=== PATIENT | female | born 1970 | race African-American/Black ===

== ENCOUNTER 2022-07-10 15:32 | Emergency (ER) | payer SELFPAY ==
[~2022-07-10] VITALS: Ht 175.3 cm; Wt 113.6 kg
[2022-07-10] MEDS ORDERED: methylPREDNISolone SOD SUCC 125 MG/2 ML VL IV ONE (16:15)
[2022-07-10] MEDS ORDERED: cefTRIAXone 1GM/50ML D5W 50 ML IV ONE ×2 (16:15)
[2022-07-10] MEDS ORDERED: cefTRIAXone SOD 1,000 MG VL IM ONE (16:30)
[2022-07-10 16:35] VITALS: BP 136/74
[2022-07-11] MEDS ORDERED: TRIA0.02 TOP (13:39)
[2022-07-11] MEDS ORDERED: CEPH-510 PO (13:39)
== END 2022-07-10 18:13 | disposition home or self-care (01) ==
LOC: ER 15:32 → EDBD 15:32 → ER 18:08
DX: L23.9 Allergic contact dermatitis, unspecified cause (principal); L08.9 Local infection of the skin and subcutaneous tissue, unspecified; R22.0 Localized swelling, mass and lump, head; J45.909 Unspecified asthma, uncomplicated; I10 Essential (primary) hypertension
CPT/HCPCS: 96365; 96372; 96375; 99284; J0696; J2930

== ENCOUNTER 2022-07-11 10:09 | Emergency (ER) | payer OTHER ==
[~2022-07-11] VITALS: Ht 162.6 cm; Wt 121.2 kg
[2022-07-11 10:15] VITALS: BP 109/59
[2022-07-11] MEDS ORDERED: methylPREDNISolone SOD SUCC 125 MG/2 ML VL IV ONE (11:00)
[2022-07-11] MEDS ORDERED: cefTRIAXone 1GM/50ML D5W 50 ML IV ONE (11:00)
[2022-07-11 11:47] LABS: Basophils # (auto) 0 10 ^3/uL (0-0.2); Basophils % (auto) 0.1 % (0.0-2.0); Eosinophils # (auto) 0 10 ^3/uL (0-0.8); Hematocrit 45.2 % (36.0-46.0); Hemoglobin 15.9 g/dL (12.2-16.2); Lymphocytes # (auto) 1.2 10 ^3/uL (0.4-5.4); Lymphocytes % (auto) 6.7 % (10.0-50.0); Mean Corpuscular Hemoglobin 32.9 pg (28.0-32.0); Mean Corpuscular Hgb Conc. 35.2 g/dL (32.0-36.0); Mean Corpuscular Volume 93.4 fL (80.0-100.0); Monocytes # (auto) 0.7 10 ^3/uL (0-1.3); Monocytes % (auto) 4.2 % (0.0-12.0); Neutrophils # (auto) 15.8 10 ^3/uL (1.6-8.6); Nucleated Red Blood Cells % 0.1 %; Red Blood Cells 4.84 10^6/uL (4.0-5.20); Red Cell Distribution Width 13.1 % (11.8-14.3); White Blood Cell 17.8 10^3/uL (4.4-10.8)
[2022-07-11] MEDS ORDERED: CLINDAMYCIN 900MG IV 50 ML IV ONE (12:00)
[2022-07-11 12:04] LABS: Albumin 3.7 g/dL (3.4-5.0); BUN/Creatinine Ratio 15.6; Calcium 9.5 mg/dL (8.5-10.1)
[2022-07-11 12:13] LABS: Bilirubin, Total 0.8 mg/dL (0.2-1.0); Total Protein 8.7 g/dL (6.4-8.2)
[2022-07-11] MEDS ORDERED: CEPH-510 PO (13:39)
[2022-07-11] MEDS ORDERED: TRIA0.02 TOP (13:39)
== END 2022-07-11 14:11 | disposition home or self-care (01) ==
LOC: ER 10:09
DX: L23.9 Allergic contact dermatitis, unspecified cause (principal); L08.89 Other specified local infections of the skin and subcutaneous tissue; J45.909 Unspecified asthma, uncomplicated; I10 Essential (primary) hypertension; Z88.6 Allergy status to analgesic agent
CPT/HCPCS: 36415; 80053; 83605; 85025; 96365; 96368; 96375; 99284; J0696; J2930; J3490

== ENCOUNTER → 2023-09-28 | Outpatient (CLI) | payer MEDICAID ==
[~2023-09-28] VITALS: Ht 162.6 cm; Wt 125.6 kg
[~2023-09-28] MED LIST: CEPH-510 PO; TRIA0.02 TOP
== END | disposition home or self-care (01) ==
LOC: Rad HDHVI 12:24
PROVIDERS: ATTEND Internal Medicine Cardiovascular Disease
DX: R07.89 Other chest pain (principal); I10 Essential (primary) hypertension
CPT/HCPCS: 78452; 93017; 96374; A9500

== ENCOUNTER → 2023-09-29 | Outpatient (CLI) | payer MEDICAID | END | disposition home or self-care (01) | LOC: Rad HDHVI 13:44 | PROVIDERS: ATTEND Internal Medicine Cardiovascular Disease | DX: Z53.9 Procedure and treatment not carried out, unspecified reason (principal); R07.89 Other chest pain | CPT/HCPCS: 93306 ==